=== PATIENT | female | born 1960 ===

== ENCOUNTER 2023-07-30 09:21 | Day surgery (SDC) | payer OTHER ==
[2023-07-23 11:16] LABS: PH,URINE 6.5 (5.0-8.0); URINE APPEARANCE Clear; URINE BILIRRUBIN Negative (NEGATIVE); URINE BLOOD Negative; URINE COLOR Yellow; URINE GLUCOSE Negative (NEGATIVE); URINE LEUKOCYTE Negative; URINE NITRATE Negative; URINE PROTEIN Negative (NEGATIVE)
[2023-07-23 11:17] LABS: URINE BACTERIA 60.4 uL (0.0-1933); URINE EPITHELIAL CELLS 5.3 uL (0.0-38.8); URINE WBC 2.7 uL (0.0-23.2)
[2023-07-23 11:21] LABS: HEMOGLOBIN 10.1 g/dL (12.0-15.00); MEAN CELL VOLUME 75.7 fL (80.00-100.00); MEAN CORPUSCULAR HEMOGLOBIN 23.9 pg (27.00-32.0); MEAN CORPUSCULAR HGB CONC 31.6 g/dl (32.0-36.0); PLATELET COUNT 383 K/uL (150-450); RED BLOOD COUNT 4.23 M/uL (4.00-6.00); RED CELL DISTRIBUTION WIDTH 17.7 % (11.5-14.5)
[2023-07-23 11:35] LABS: URINE RBC 0.7 uL (0.0-20.8)
[2023-07-23 11:36] LABS: INR 0.97; PARTIAL THROMBOPLASTIN TIME 31.6 SECONDS (22.0-34.0); PROTHROMBIN TIME 10.2 SECONDS (9.0-11.5)
[2023-07-23 11:43] LABS: ALBUMIN 3.5 gm/dL (3.4-5.0); BILIRUBIN TOTAL 0.27 mg/dL (0.3-1.2); CALCIUM 9.3 mg/dL (8.5-10.1); CREATININE SERUM 1.12 mg/dL (0.55-1.02); GFR 49.45; GLOBULINA 3.1 G/DL (2.4-3.5); POTASSIUM 4.3 mEq/L (3.5-5.1); TOTAL PROTEIN 6.6 gm/dL (6.4-8.2)
[~2023-07-30 09:21] MED LIST: BACLOFEN20 MG PO; HYDROXYZINE PAM50 MG PO; SEROQUEL XR50 MG PO; TRAMADOL HCL50 MG PO
== END 2023-07-30 17:00 | disposition home or self-care (01) ==
LOC: CIR.AMB 09:21
PROVIDERS: ATTEND Otolaryngology Otology & Neurotology
DX: H72.91 Unspecified perforation of tympanic membrane, right ear (principal); H66.91 Otitis media, unspecified, right ear